=== PATIENT | female | born 1935 | race Caucasian/White ===

== ENCOUNTER 2017-07-09 08:42 | Inpatient (IN) | payer MEDICARE, BC ==
[2017-07-09 09:04] LABS: ADD MAN DIFF? NO
[2017-07-09 09:06] LABS: BASOPHILS % 0.1 % (0.0-2.0); EOSINOPHILS # 0.6 10^3/ul (0.0-0.5); EOSINOPHILS % 2.7 % (0.0-7.0); HEMATOCRIT 36.2 % (37.0-47.0); HEMOGLOBIN 12.1 g/dl (12.0-16.0); LYMPHOCYTES # 2.2 10^3/ul (0.8-2.9); LYMPHOCYTES % 10.9 % (15.0-51.0); MEAN CORPUSCULAR HEMOGLOBIN 31.9 pg (29.0-33.0); MEAN CORPUSCULAR HGB CONC 33.4 g/dl (32.0-37.0); MEAN CORPUSCULAR VOLUME 95.5 fl (82.0-101.0); MEAN PLATELET VOLUME 10.7 fl (7.4-10.4); MONOCYTE # 1.2 10^3/ul (0.3-0.9); NEUTROPHIL # 16.4 10^3/ul (1.6-7.5); NEUTROPHILS % 79.7 % (39.0-77.0); PLATELET COUNT 196 10^3/UL (140-415); RED BLOOD COUNT 3.79 10^6/ul (4.20-5.40); RED CELL DISTRIBUTION WIDTH 12.9 % (11.5-14.5)
[2017-07-09 09:06] LABS: WHITE BLOOD COUNT 20.6 10^3/ul (4.8-10.8)
[2017-07-09] MEDS: morphine 4 MG/ML VIAL IV (09:20)
[2017-07-09] MEDS: ONDANSETRON 4 MG INJ IV (09:22)
[2017-07-09] MEDS: SOD CHLORIDE 0.9% 1,000 ML IV ×2 (09:22→12:52)
[2017-07-09 09:29] LABS: ALANINE AMINOTRANSFERASE 57 IU/L (13-69); ALBUMIN 4.7 g/dl (3.3-4.9); ALBUMIN/GLOBULIN RATIO 1.51; ALKALINE PHOSPHATASE 73 IU/L (42-121); ANION GAP 23 (8-16); ASPARTATE AMINO TRANSFERASE 60 IU/L (15-46); BILIRUBIN,INDIRECT 0.3 mg/dl (0-1.1); BILIRUBIN,TOTAL 0.3 mg/dl (0.2-1.3); BLOOD UREA NITROGEN 32 mg/dl (7-20); CALCIUM 10.9 mg/dl (8.4-10.2); CARBON DIOXIDE 18 mmol/L (21-31); CHLORIDE 106 mmol/L (97-110); CREATININE 1.05 mg/dl (0.44-1.00); GLUCOSE 328 mg/dl (70-220); LIPASE 208 U/L (23-300); POTASSIUM 5.4 mmol/L (3.5-5.1); SODIUM 142 mmol/L (135-144); TOTAL PROTEIN 7.8 g/dl (6.1-8.1)
[2017-07-09 09:37] LABS: PARTIAL THROMBOPLASTIN TIME 27.7 Sec (25.0-35.0)
[2017-07-09 09:41] LABS: INR 0.95; PROTIME 12.8 Sec (11.9-14.9)
[2017-07-09 09:42] LABS: TROPONIN-I < 0.012 ng/ml (0.000-0.120)
[2017-07-09] MEDS: SOD CHLORIDE 0.9% 2,000 ML IV (10:19)
[2017-07-09] MEDS: INSULIN LISPRO 100 UNIT/ML VIAL SC (10:24)
[2017-07-09] MEDS: LACTATED RINGER'S 1,000 ML IV (10:30)
[2017-07-09] MEDS ORDERED: ACETAMINOPHEN 325 MG TAB PO ×2 (11:30→12:00)
[2017-07-09] MEDS ORDERED: ONDANSETRON 4 MG INJ IV ×2 (11:30→12:00)
[2017-07-09] MEDS ORDERED: NACL 0.9% 3 ML SYG IV (12:00)
[2017-07-09] MEDS ORDERED: NON-FORMULARY/PATIENT OWN MED (Rosuvastatin Calcium* (Crestor*) 5 MG) PO (12:00)
[2017-07-09] MEDS ORDERED: DOCUSATE SODIUM 100 MG CAP PO (12:00)
[2017-07-09] MEDS ORDERED: MAGNESIUM HYDROXIDE 30ML CUP PO (12:00)
[2017-07-09 12:54] LABS: HEMOGLOBIN A1C 7.9 % (0-5.9)
[2017-07-09 14:18] LABS: CARBON DIOXIDE 18 mmol/L (21-31); CHLORIDE 114 mmol/L (97-110); POTASSIUM 4.9 mmol/L (3.5-5.1); SODIUM 145 mmol/L (135-144)
[2017-07-09 14:19] LABS: ANION GAP 18 (8-16); BLOOD UREA NITROGEN 30 mg/dl (7-20); CREATININE 0.92 mg/dl (0.44-1.00); GLUCOSE 113 mg/dl (70-220)
[2017-07-09 14:20] LABS: LACTIC ACID 3.4 mmol/L (0.5-2.0)
[2017-07-09] MEDS: CHOLECALCIFEROL 1,000 UNIT TAB PO (14:31)
[2017-07-09] MEDS: FOLIC ACID 1 MG TAB PO (14:31)
[2017-07-09] MEDS: MULTIVITAMINS THERAPEUTIC TAB PO (14:31)
[2017-07-09] MEDS: METOPROLOL (XL) 25 MG TAB PO (14:32)
[2017-07-09] MEDS: AMLODIPINE 2.5 MG TAB PO (14:32)
[2017-07-09] MEDS: PANTOPRAZOLE (EC) 40 MG TAB PO (14:32)
[2017-07-09] MEDS: CYANOCOBALAMIN 100 MCG TAB PO (14:38)
[2017-07-09] MEDS: ENOXAPARIN 40 MG/0.4 ML SYG SC (14:38)
[2017-07-09 15:26] LABS: LACTIC ACID 2.7 mmol/L (0.5-2.0)
[2017-07-09 15:35] LABS: ADD UMIC YES; UR ASCORBIC ACID NEGATIVE (NEGATIVE); UR BACTERIA MODERATE /HPF (NONE SEEN); UR BILIRUBIN (Dip) NEGATIVE (NEGATIVE); UR BLOOD (Dip) NEGATIVE (NEGATIVE); UR CLARITY SLIGHTLY CLOUDY (CLEAR); UR COLOR YELLOW (YELLOW); UR GLUCOSE (Dip) NEGATIVE (NEGATIVE); UR KETONES (Dip) TRACE mg/dL (NEGATIVE); UR LEUKOCYTE ESTERASE (Dip) TRACE Leu/ul (NEGATIVE); UR MUCUS FEW /HPF (NONE SEEN); UR NITRITE (Dip) POSITIVE (NEGATIVE); UR RBC 0 /HPF (0-5); UR SPECIFIC GRAVITY (Dip) 1.013 (1.003-1.030); UR TOTAL PROTEIN (Dip) NEGATIVE (NEGATIVE); UR UROBILINOGEN (Dip) NEGATIVE (NEGATIVE); UR WBC 5 /HPF (0-5)
[2017-07-09] MEDS: LEVOFLOXACIN 500MG/D5W (PMX) 100 ML IVPB (17:20)
[2017-07-09] MEDS: INSULIN ASPART [NOVOLOG] 3 ML PEN SC ×2 (17:23→20:56)
[2017-07-09 17:55] LABS: LACTIC ACID 1.2 mmol/L (0.5-2.0)
[2017-07-09] MEDS: GABAPENTIN 100 MG CAP PO (20:56)
[2017-07-09] MEDS ORDERED: ROSUVASTATIN 10 MG TAB PO (21:00)
[2017-07-09] MEDS: ROSUVASTATIN 10 MG TAB PO (21:46)
[2017-07-10] MEDS: PANTOPRAZOLE (EC) 40 MG TAB PO (05:11)
[2017-07-10 05:26] LABS: ADD MAN DIFF? NO
[2017-07-10 05:31] LABS: WHITE BLOOD COUNT 13.4 10^3/ul (4.8-10.8)
[2017-07-10 05:31] LABS: BASOPHILS % 0.1 % (0.0-2.0); EOSINOPHILS # 0.5 10^3/ul (0.0-0.5); EOSINOPHILS % 3.8 % (0.0-7.0); HEMATOCRIT 25.8 % (37.0-47.0); HEMOGLOBIN 8.5 g/dl (12.0-16.0); LYMPHOCYTES # 3.6 10^3/ul (0.8-2.9); LYMPHOCYTES % 27.2 % (15.0-51.0); MEAN CORPUSCULAR HEMOGLOBIN 32.2 pg (29.0-33.0); MEAN CORPUSCULAR HGB CONC 32.9 g/dl (32.0-37.0); MEAN CORPUSCULAR VOLUME 97.7 fl (82.0-101.0); MEAN PLATELET VOLUME 10.8 fl (7.4-10.4); MONOCYTE # 0.8 10^3/ul (0.3-0.9); MONOCYTES % 6.1 % (0.0-11.0); NEUTROPHIL # 8.3 10^3/ul (1.6-7.5); NEUTROPHILS % 62.4 % (39.0-77.0); PLATELET COUNT 147 10^3/UL (140-415); RED BLOOD COUNT 2.64 10^6/ul (4.20-5.40)
[2017-07-10 05:53] LABS: ANION GAP 15 (8-16); BLOOD UREA NITROGEN 29 mg/dl (7-20); CALCIUM 8.5 mg/dl (8.4-10.2); CARBON DIOXIDE 19 mmol/L (21-31); CHLORIDE 111 mmol/L (97-110); CREATININE 1.04 mg/dl (0.44-1.00); GLUCOSE 86 mg/dl (70-220); MAGNESIUM 1.2 mg/dl (1.7-2.5); PHOSPHORUS 3.2 mg/dl (2.5-4.9); POTASSIUM 4.4 mmol/L (3.5-5.1); SODIUM 141 mmol/L (135-144)
[2017-07-10] MEDS: INSULIN ASPART [NOVOLOG] 3 ML PEN SC ×4 (08:00→21:46)
[2017-07-10] MEDS: FOLIC ACID 1 MG TAB PO (09:00)
[2017-07-10] MEDS: MULTIVITAMINS THERAPEUTIC TAB PO (09:01)
[2017-07-10] MEDS: AMLODIPINE 2.5 MG TAB PO (09:01)
[2017-07-10] MEDS: CYANOCOBALAMIN 100 MCG TAB PO (09:01)
[2017-07-10] MEDS: CHOLECALCIFEROL 1,000 UNIT TAB PO (09:01)
[2017-07-10] MEDS: METOPROLOL (XL) 25 MG TAB PO (09:01)
[2017-07-10] MEDS: SOD CHLORIDE 0.9% 1,000 ML IV (09:09)
[2017-07-10] MEDS: LEVOFLOXACIN 250MG/D5W (PMX) 50 ML IVPB (16:08)
[2017-07-10] MEDS: MAGNESIUM OXIDE 400 MG TAB PO (17:17)
[2017-07-10] MEDS: MAGNESIUM SULFATE 4 GM/100 ML 100 ML IVPB (17:27)
[2017-07-10] MEDS: GABAPENTIN 100 MG CAP PO (21:47)
[2017-07-11] MEDS: PANTOPRAZOLE (EC) 40 MG TAB PO (05:39)
[2017-07-11] MEDS: CHOLECALCIFEROL 1,000 UNIT TAB PO (08:17)
[2017-07-11] MEDS: MULTIVITAMINS THERAPEUTIC TAB PO (08:17)
[2017-07-11] MEDS: FOLIC ACID 1 MG TAB PO (08:17)
[2017-07-11] MEDS: INSULIN ASPART [NOVOLOG] 3 ML PEN SC ×2 (08:17→12:25)
[2017-07-11] MEDS: AMLODIPINE 2.5 MG TAB PO (08:18)
[2017-07-11] MEDS: METOPROLOL (XL) 25 MG TAB PO (08:18)
[2017-07-11] MEDS: CYANOCOBALAMIN 100 MCG TAB PO (08:20)
[2017-07-11 12:22] LABS: ADD MAN DIFF? NO
[2017-07-11 12:27] LABS: BASOPHILS % 0.1 % (0.0-2.0); EOSINOPHILS # 0.6 10^3/ul (0.0-0.5); EOSINOPHILS % 5.8 % (0.0-7.0); HEMATOCRIT 28.3 % (37.0-47.0); HEMOGLOBIN 9.5 g/dl (12.0-16.0); LYMPHOCYTES # 2.9 10^3/ul (0.8-2.9); LYMPHOCYTES % 29.3 % (15.0-51.0); MEAN CORPUSCULAR HEMOGLOBIN 31.8 pg (29.0-33.0); MEAN CORPUSCULAR HGB CONC 33.6 g/dl (32.0-37.0); MEAN CORPUSCULAR VOLUME 94.6 fl (82.0-101.0); MEAN PLATELET VOLUME 10.2 fl (7.4-10.4); MONOCYTE # 0.7 10^3/ul (0.3-0.9); MONOCYTES % 6.9 % (0.0-11.0); NEUTROPHIL # 5.8 10^3/ul (1.6-7.5); NEUTROPHILS % 57.3 % (39.0-77.0); PLATELET COUNT 149 10^3/UL (140-415); RED BLOOD COUNT 2.99 10^6/ul (4.20-5.40); RED CELL DISTRIBUTION WIDTH 12.8 % (11.5-14.5)
[2017-07-11 12:47] LABS: ALBUMIN 4.1 g/dl (3.3-4.9); ANION GAP 19 (8-16); BLOOD UREA NITROGEN 19 mg/dl (7-20); CALCIUM 8.9 mg/dl (8.4-10.2); CARBON DIOXIDE 22 mmol/L (21-31); CHLORIDE 106 mmol/L (97-110); CREATININE 0.94 mg/dl (0.44-1.00); GLUCOSE 254 mg/dl (70-220); PHOSPHORUS 2.9 mg/dl (2.5-4.9); POTASSIUM 4.8 mmol/L (3.5-5.1); SODIUM 142 mmol/L (135-144)
[2017-07-11] MEDS: LEVOFLOXACIN 250 MG TAB PO (15:57)
== END 2017-07-11 17:19 | disposition home or self-care (01) | DRG 872 ==
LOC: E/R 08:42 → PP2 11:28
PROVIDERS: Internal Medicine
DX: A41.9 Sepsis, unspecified organism (principal); N39.0 Urinary tract infection, site not specified; N17.9 Acute kidney failure, unspecified; E11.65 Type 2 diabetes mellitus with hyperglycemia; K52.9 Noninfective gastroenteritis and colitis, unspecified
CPT/HCPCS: 36415; 74176; 76705; 80048; 80053; 80069; 81001; 82962; 83036; 83605; 83690; 83735; 84100; 84484; 85025; 85610; 85730; 86850; 86900; 86901; 87040; 87045; 87086; 87177; 93005; 96361; 96372; 96374; 96375; 99285-25

== ENCOUNTER 2017-08-30 17:22 | Inpatient (IN) | payer MEDICARE, BC ==
[2017-08-30 17:37] LABS: ADD MAN DIFF? NO
[2017-08-30 17:44] LABS: WHITE BLOOD COUNT 18.7 10^3/ul (4.8-10.8)
[2017-08-30 17:44] LABS: BASOPHILS % 0.2 % (0.0-2.0); EOSINOPHILS # 0.4 10^3/ul (0.0-0.5); EOSINOPHILS % 2.1 % (0.0-7.0); HEMATOCRIT 35.6 % (37.0-47.0); HEMOGLOBIN 12.1 g/dl (12.0-16.0); LYMPHOCYTES # 2.2 10^3/ul (0.8-2.9); LYMPHOCYTES % 11.9 % (15.0-51.0); MEAN CORPUSCULAR HEMOGLOBIN 32.8 pg (29.0-33.0); MEAN CORPUSCULAR VOLUME 96.5 fl (82.0-101.0); MEAN PLATELET VOLUME 10.9 fl (7.4-10.4); MONOCYTES % 5.5 % (0.0-11.0); NEUTROPHIL # 14.9 10^3/ul (1.6-7.5); NEUTROPHILS % 79.7 % (39.0-77.0); PLATELET COUNT 185 10^3/UL (140-415); RED BLOOD COUNT 3.69 10^6/ul (4.20-5.40); RED CELL DISTRIBUTION WIDTH 12.7 % (11.5-14.5)
[2017-08-30 18:03] LABS: ALANINE AMINOTRANSFERASE 49 IU/L (13-69); ALBUMIN 5.1 g/dl (3.3-4.9); ALBUMIN/GLOBULIN RATIO 1.59; ALKALINE PHOSPHATASE 81 IU/L (42-121); ANION GAP 24 (8-16); ASPARTATE AMINO TRANSFERASE 66 IU/L (15-46); BILIRUBIN,INDIRECT 0.3 mg/dl (0-1.1); BILIRUBIN,TOTAL 0.3 mg/dl (0.2-1.3); BLOOD UREA NITROGEN 35 mg/dl (7-20); CALCIUM 10.4 mg/dl (8.4-10.2); CARBON DIOXIDE 14 mmol/L (21-31); CHLORIDE 108 mmol/L (97-110); GLUCOSE 240 mg/dl (70-220); LIPASE 297 U/L (23-300); SODIUM 141 mmol/L (135-144); TOTAL PROTEIN 8.3 g/dl (6.1-8.1)
[2017-08-30 18:14] LABS: TROPONIN-I < 0.010 ng/ml (0.000-0.120)
[2017-08-30] MEDS: SOD CHLORIDE 0.9% 1,000 ML IV (18:18)
[2017-08-30] MEDS: ONDANSETRON 4 MG INJ IV (18:18)
[2017-08-30] MEDS ORDERED: SOD CHLORIDE 0.9% 1,000 ML IV (19:10)
[2017-08-30] MEDS ORDERED: DEXTROSE 50% 50 ML SYRINGE IV ×4 (19:30→22:30)
[2017-08-30 20:40] LABS: ADD UMIC NO; UR ASCORBIC ACID NEGATIVE (NEGATIVE); UR BILIRUBIN (Dip) NEGATIVE (NEGATIVE); UR BLOOD (Dip) NEGATIVE (NEGATIVE); UR CLARITY CLEAR (CLEAR); UR COLOR YELLOW (YELLOW); UR GLUCOSE (Dip) NEGATIVE (NEGATIVE); UR KETONES (Dip) 1+ mg/dL (NEGATIVE); UR LEUKOCYTE ESTERASE (Dip) NEGATIVE Leu/ul (NEGATIVE); UR NITRITE (Dip) NEGATIVE (NEGATIVE); UR SPECIFIC GRAVITY (Dip) 1.015 (1.003-1.030); UR TOTAL PROTEIN (Dip) NEGATIVE (NEGATIVE); UR UROBILINOGEN (Dip) NEGATIVE (NEGATIVE)
[2017-08-30 21:14] LABS: MODE ROOM AIR; MetHgb Venous 0.4 %; Sample Type Blood venous; Site VENOUS LINE; Venous COHb 0.3 %; Venous Fraction OxyHgb 56.1 %; Venous Oxygen Sat 56.5 mmHG (55.0-75.0); Venous Total Hemglobin 10.9 g/dl
[2017-08-30] MEDS: INSULIN REGULAR, HUMAN 100 UNIT in SOD CHLORIDE 0.9% 100 ML IV (21:17)
[2017-08-30] MEDS: SODIUM CHLORIDE 23.4% 77 MEQ, POTASSIUM CHLORIDE 30 MEQ in DEXTROSE 10% 1,000 ML IV (21:29)
[2017-08-30] MEDS: POTASSIUM CHLORIDE 30 MEQ in SOD CHLORIDE 0.9% 1,000 ML IV (21:29)
[2017-08-30 21:55] LABS: ANION GAP 18 (8-16); BLOOD UREA NITROGEN 35 mg/dl (7-20); CALCIUM 9.1 mg/dl (8.4-10.2); CARBON DIOXIDE 17 mmol/L (21-31); CHLORIDE 110 mmol/L (97-110); CREATININE 1.14 mg/dl (0.44-1.00); GLUCOSE 229 mg/dl (70-220); PHOSPHORUS 2.3 mg/dl (2.5-4.9); POTASSIUM 5.1 mmol/L (3.5-5.1); SODIUM 140 mmol/L (135-144)
[2017-08-30 22:00] LABS: MAGNESIUM 0.9 mg/dl (1.7-2.5)
[2017-08-30] MEDS ORDERED: SODIUM CHLORIDE 23.4% 77 MEQ, POTASSIUM CHLORIDE 30 MEQ in DEXTROSE 10% 1,000 ML IV (22:14)
[2017-08-30] MEDS ORDERED: POTASSIUM CHLORIDE 40 MEQ in SOD CHLORIDE 0.9% 1,000 ML IV (22:14)
[2017-08-30] MEDS ORDERED: POTASSIUM CHLORIDE 30 MEQ in SOD CHLORIDE 0.9% 1,000 ML IV (22:14)
[2017-08-30] MEDS ORDERED: SODIUM CHLORIDE 23.4% 77 MEQ, POTASSIUM CHLORIDE 40 MEQ in DEXTROSE 10% 1,000 ML IV (22:14)
[2017-08-30] MEDS ORDERED: ALBUTEROL/IPRATROPIUM (NEB) 3 ML AMP NEB (22:30)
[2017-08-30] MEDS ORDERED: ACETAMINOPHEN 325 MG TAB PO (22:30)
[2017-08-30] MEDS ORDERED: ONDANSETRON 4 MG INJ IV (22:30)
[2017-08-30] MEDS ORDERED: NON-FORMULARY/PATIENT OWN MED (Rosuvastatin Calcium* (Crestor*) 5 MG) PO (22:30)
[2017-08-30] MEDS ORDERED: ACETAMINOPHEN 650MG/20.3ML CUP PO (22:30)
[2017-08-30] MEDS ORDERED: morphine 2 MG INJ IV (22:30)
[2017-08-30] MEDS: ACCU-CHEK XX ×2 (22:57→23:30)
[2017-08-30 23:09] LABS: MODE ROOM AIR; MetHgb Venous 0.4 %; Sample Type Blood venous; Site VENOUS LINE; Venous COHb 0.3 %; Venous Oxygen Sat 62.4 mmHG (55.0-75.0); Venous Total Hemglobin 10.3 g/dl
[2017-08-30 23:37] LABS: HEMOGLOBIN A1C 7.8 % (0-5.9)
[2017-08-30 23:47] LABS: ANION GAP 15 (8-16); BLOOD UREA NITROGEN 31 mg/dl (7-20); CARBON DIOXIDE 15 mmol/L (21-31); CHLORIDE 114 mmol/L (97-110); CREATININE 0.98 mg/dl (0.44-1.00); PHOSPHORUS 1.3 mg/dl (2.5-4.9); SODIUM 137 mmol/L (135-144)
[2017-08-30 23:55] LABS: POTASSIUM 7.1 mmol/L (3.5-5.1)
[2017-08-30 23:56] LABS: GLUCOSE 834 mg/dl (70-220)
[2017-08-31 00:29] LABS: ANION GAP 14 (8-16); BLOOD UREA NITROGEN 35 mg/dl (7-20); CALCIUM 8.7 mg/dl (8.4-10.2); CARBON DIOXIDE 18 mmol/L (21-31); CHLORIDE 115 mmol/L (97-110); CREATININE 1.09 mg/dl (0.44-1.00); GLUCOSE 246 mg/dl (70-220); POTASSIUM 5.2 mmol/L (3.5-5.1); SODIUM 142 mmol/L (135-144)
[2017-08-31] MEDS: ACCU-CHEK XX ×17 (00:30→16:35)
[2017-08-31 00:32] LABS: LACTIC ACID 5.4 mmol/L (0.5-2.0)
[2017-08-31] MEDS: MAGNESIUM SULFATE 4 GM/100 ML 100 ML IVPB (00:52)
[2017-08-31 02:56] LABS: LACTIC ACID 3.6 mmol/L (0.5-2.0)
[2017-08-31 03:01] LABS: ANION GAP 15 (8-16); BLOOD UREA NITROGEN 36 mg/dl (7-20); CALCIUM 8.5 mg/dl (8.4-10.2); CARBON DIOXIDE 18 mmol/L (21-31); CHLORIDE 114 mmol/L (97-110); GLUCOSE 253 mg/dl (70-220); MAGNESIUM 1.8 mg/dl (1.7-2.5); PHOSPHORUS 1.6 mg/dl (2.5-4.9); POTASSIUM 5.8 mmol/L (3.5-5.1); SODIUM 141 mmol/L (135-144)
[2017-08-31 03:13] LABS: MODE ROOM AIR; MetHgb Venous 0.5 %; Sample Type Blood venous; Site VENOUS LINE; Venous COHb 0.2 %; Venous Fraction OxyHgb 64.6 %; Venous Oxygen Sat 65.1 mmHG (55.0-75.0); Venous Total Hemglobin 9.4 g/dl
[2017-08-31] MEDS: SODIUM CHLORIDE 23.4% 77 MEQ in DEXTROSE 10% 1,000 ML IV ×2 (04:21→12:35)
[2017-08-31] MEDS: SOD CHLORIDE 0.9% 1,000 ML IV (04:22)
[2017-08-31] MEDS: PANTOPRAZOLE 40 MG INJ IV (06:08)
[2017-08-31 07:07] LABS: LACTIC ACID 2.7 mmol/L (0.5-2.0)
[2017-08-31 07:13] LABS: ANION GAP 13 (8-16); BLOOD UREA NITROGEN 32 mg/dl (7-20); CALCIUM 8.5 mg/dl (8.4-10.2); CARBON DIOXIDE 18 mmol/L (21-31); CHLORIDE 114 mmol/L (97-110); GLUCOSE 255 mg/dl (70-220); MAGNESIUM 2.9 mg/dl (1.7-2.5); POTASSIUM 5.5 mmol/L (3.5-5.1); SODIUM 139 mmol/L (135-144)
[2017-08-31 07:47] LABS: AADO2 Venous 76.4 mmHg; MODE ROOM AIR; MetHgb Venous 0.6 %; Site VENOUS LINE; Venous COHb 0.1 %; Venous Fraction OxyHgb 56.7 %; Venous Oxygen Sat 57.1 mmHG (55.0-75.0); Venous Total Hemglobin 9.6 g/dl
[2017-08-31 07:48] LABS: Sample Type Blood venous
[2017-08-31] MEDS: CHOLECALCIFEROL 1,000 UNIT TAB PO (08:24)
[2017-08-31] MEDS: CYANOCOBALAMIN 100 MCG TAB PO (08:24)
[2017-08-31] MEDS: FOLIC ACID 1 MG TAB PO (08:24)
[2017-08-31] MEDS: AMLODIPINE 2.5 MG TAB PO (09:00)
[2017-08-31] MEDS: LISINOPRIL 20 MG TAB PO (10:42)
[2017-08-31] MEDS: METOPROLOL (XL) 25 MG TAB PO (10:43)
[2017-08-31 11:03] LABS: LACTIC ACID 2.5 mmol/L (0.5-2.0)
[2017-08-31] MEDS: INSULIN ASPART [NOVOLOG] 3 ML PEN SC ×7 (11:30→20:46)
[2017-08-31] MEDS ORDERED: GLUCOSE GEL 15 GRAM TUBE BUCCAL (12:00)
[2017-08-31] MEDS ORDERED: GLUCOSE GEL 15 GRAM TUBE PO ×2 (12:00)
[2017-08-31] MEDS ORDERED: GLUCAGON 1 MG INJ IM (12:00)
[2017-08-31] MEDS ORDERED: DEXTROSE 50% 50 ML SYRINGE IV ×2 (12:00)
[2017-08-31 12:32] LABS: ADD UMIC YES; UR AMORPHOUS CRYSTAL MANY /HPF (NONE SEEN); UR ASCORBIC ACID NEGATIVE (NEGATIVE); UR BACTERIA MANY /HPF (NONE SEEN); UR BILIRUBIN (Dip) NEGATIVE (NEGATIVE); UR BLOOD (Dip) 3+ mg/dL (NEGATIVE); UR CLARITY CLOUDY (CLEAR); UR COLOR YELLOW (YELLOW); UR GLUCOSE (Dip) NEGATIVE (NEGATIVE); UR KETONES (Dip) NEGATIVE (NEGATIVE); UR LEUKOCYTE ESTERASE (Dip) 3+ Leu/ul (NEGATIVE); UR NITRITE (Dip) NEGATIVE (NEGATIVE); UR RBC 14 /HPF (0-5); UR SPECIFIC GRAVITY (Dip) 1.006 (1.003-1.030); UR TOTAL PROTEIN (Dip) NEGATIVE (NEGATIVE); UR UROBILINOGEN (Dip) NEGATIVE (NEGATIVE); UR WBC 18 /HPF (0-5)
[2017-08-31] MEDS: INSULIN GLARGINE [LANTus] (100 UNITS/ML) SYG SC (12:37)
[2017-08-31] MEDS: INSULIN REGULAR, HUMAN 100 UNIT in SOD CHLORIDE 0.9% 100 ML IV (14:30)
[2017-08-31 15:02] LABS: AADO2 Venous 85.2 mmHg; MODE ROOM AIR; MetHgb Venous 0.8 %; Sample Type Blood venous; Site VENOUS LINE; Venous COHb 0.3 %; Venous Fraction OxyHgb 32.8 %; Venous Oxygen Sat 33.2 mmHG (55.0-75.0); Venous Total Hemglobin 9.7 g/dl
[2017-08-31 16:05] LABS: ANION GAP 13 (8-16); BLOOD UREA NITROGEN 21 mg/dl (7-20); CARBON DIOXIDE 16 mmol/L (21-31); CHLORIDE 111 mmol/L (97-110); CREATININE 0.96 mg/dl (0.44-1.00); GLUCOSE 268 mg/dl (70-220); MAGNESIUM 2.1 mg/dl (1.7-2.5); PHOSPHORUS 2.2 mg/dl (2.5-4.9); POTASSIUM 4.4 mmol/L (3.5-5.1); SODIUM 136 mmol/L (135-144)
[2017-08-31] MEDS: GABAPENTIN 100 MG CAP PO ×2 (20:46→20:47)
[2017-09-01] MEDS ORDERED: ACCU-CHEK XX (02:00)
[2017-09-01] MEDS: PANTOPRAZOLE 40 MG INJ IV (05:31)
[2017-09-01] MEDS ORDERED: INSULIN GLARGINE [LANTus] (100 UNITS/ML) SYG SC (08:00)
[2017-09-01] MEDS: INSULIN ASPART [NOVOLOG] 3 ML PEN SC ×4 (08:00→12:45)
[2017-09-01] MEDS: CHOLECALCIFEROL 1,000 UNIT TAB PO (08:29)
[2017-09-01] MEDS: LISINOPRIL 20 MG TAB PO (08:29)
[2017-09-01] MEDS: AMLODIPINE 2.5 MG TAB PO (08:30)
[2017-09-01] MEDS: FOLIC ACID 1 MG TAB PO (08:30)
[2017-09-01] MEDS: METOPROLOL (XL) 25 MG TAB PO (08:30)
[2017-09-01] MEDS: INSULIN GLARGINE [LANTus] (100 UNITS/ML) SYG SC (08:31)
[2017-09-01] MEDS: CYANOCOBALAMIN 100 MCG TAB PO (09:28)
[2017-09-02] MEDS ORDERED: INSULIN GLARGINE [LANTus] (100 UNITS/ML) SYG SC (08:00)
== END 2017-09-01 18:00 | disposition home or self-care (01) | DRG 638 ==
LOC: PP2 09-01 00:11 → E/R 17:22 → ICU 22:21
DX: E11.10 Type 2 diabetes mellitus with ketoacidosis without coma (principal); E87.2 Acidosis; N17.9 Acute kidney failure, unspecified; K44.9 Diaphragmatic hernia without obstruction or gangrene; I10 Essential (primary) hypertension
CPT/HCPCS: 36415; 74176; 80048; 80053; 81001; 81003; 82803; 82962; 83036; 83605; 83690; 83735; 84100; 84484; 85025; 87081; 93005; 96374; 96375; 99285-25

== ENCOUNTER 2017-10-07 12:16 | Inpatient (IN) | payer MEDICARE, BC ==
[2017-10-07 13:33] LABS: ADD MAN DIFF? NO
[2017-10-07 13:39] LABS: ABNORMAL IP MESSAGE 1; BASOPHILS % 0.2 % (0.0-2.0); EOSINOPHILS # 0.5 10^3/ul (0.0-0.5); EOSINOPHILS % 2.5 % (0.0-7.0); HEMATOCRIT 37.8 % (37.0-47.0); HEMOGLOBIN 12.4 g/dl (12.0-16.0); LYMPHOCYTES # 1.1 10^3/ul (0.8-2.9); LYMPHOCYTES % 5.3 % (15.0-51.0); MEAN CORPUSCULAR HGB CONC 32.8 g/dl (32.0-37.0); MEAN CORPUSCULAR VOLUME 97.7 fl (82.0-101.0); MEAN PLATELET VOLUME 10.7 fl (7.4-10.4); MONOCYTE # 1.7 10^3/ul (0.3-0.9); MONOCYTES % 8.2 % (0.0-11.0); NEUTROPHILS % 83.3 % (39.0-77.0); PLATELET COUNT 203 10^3/UL (140-415); RED BLOOD COUNT 3.87 10^6/ul (4.20-5.40); RED CELL DISTRIBUTION WIDTH 12.8 % (11.5-14.5)
[2017-10-07 13:39] LABS: WHITE BLOOD COUNT 20.4 10^3/ul (4.8-10.8)
[2017-10-07 13:47] LABS: POSITIVE DIFF @See below
[2017-10-07] MEDS: ONDANSETRON 4 MG INJ IV (13:51)
[2017-10-07] MEDS: SOD CHLORIDE 0.9% 1,000 ML IV ×2 (13:51→16:09)
[2017-10-07] MEDS: LACTATED RINGER'S 1,000 ML IV (13:51)
[2017-10-07 13:59] LABS: ALANINE AMINOTRANSFERASE 39 IU/L (13-69); ALBUMIN 4.8 g/dl (3.3-4.9); ALBUMIN/GLOBULIN RATIO 1.41; ALKALINE PHOSPHATASE 74 IU/L (42-121); ANION GAP 27 (8-16); ASPARTATE AMINO TRANSFERASE 44 IU/L (15-46); BILIRUBIN,INDIRECT 0.1 mg/dl (0-1.1); BILIRUBIN,TOTAL 0.1 mg/dl (0.2-1.3); BLOOD UREA NITROGEN 33 mg/dl (7-20); CALCIUM 10.2 mg/dl (8.4-10.2); CARBON DIOXIDE 17 mmol/L (21-31); CHLORIDE 108 mmol/L (97-110); CREATININE 1.28 mg/dl (0.44-1.00); GLUCOSE 223 mg/dl (70-220); INR 0.93; LIPASE 228 U/L (23-300); PROTIME 12.6 Sec (11.9-14.9); SODIUM 145 mmol/L (135-144); TOTAL PROTEIN 8.2 g/dl (6.1-8.1)
[2017-10-07 14:05] LABS: POTASSIUM 6.6 mmol/L (3.5-5.1)
[2017-10-07 14:10] LABS: TROPONIN-I < 0.012 ng/ml (0.000-0.120)
[2017-10-07] MEDS ORDERED: DEXTROSE 50% 50 ML SYRINGE IV (14:30)
[2017-10-07] MEDS: ALBUTEROL 0.083% (NEB) 2.5 MG/3 ML AMP HHN (14:36)
[2017-10-07] MEDS: CA CHLORIDE 10% 10 ML SYRINGE IV (14:50)
[2017-10-07] MEDS: DEXTROSE 50% 50 ML SYRINGE IV (14:50)
[2017-10-07] MEDS: INSULIN REGULAR, HUMAN 100 UNIT/1 ML 3ML VIAL IVP (14:52)
[2017-10-07 15:09] LABS: MODE ROOM AIR; MetHgb Venous 0.8 %; Sample Type Blood venous; Site VENOUS LINE; Venous COHb 0.1 %; Venous Fraction OxyHgb 55.9 %; Venous Oxygen Sat 56.4 mmHG (55.0-75.0)
[2017-10-07] MEDS: CEFTRIAXONE 1 GM/50 ML (PMX) 50 ML IVPB (15:37)
[2017-10-07 16:07] LABS: ADD UMIC NO; UR ASCORBIC ACID NEGATIVE (NEGATIVE); UR BILIRUBIN (Dip) NEGATIVE (NEGATIVE); UR BLOOD (Dip) NEGATIVE (NEGATIVE); UR CLARITY CLEAR (CLEAR); UR COLOR YELLOW (YELLOW); UR GLUCOSE (Dip) 2+ mg/dL (NEGATIVE); UR KETONES (Dip) TRACE mg/dL (NEGATIVE); UR LEUKOCYTE ESTERASE (Dip) NEGATIVE Leu/ul (NEGATIVE); UR NITRITE (Dip) NEGATIVE (NEGATIVE); UR SPECIFIC GRAVITY (Dip) 1.013 (1.003-1.030); UR TOTAL PROTEIN (Dip) NEGATIVE (NEGATIVE); UR UROBILINOGEN (Dip) NEGATIVE (NEGATIVE)
[2017-10-07] MEDS ORDERED: HYDROCODONE/APAP (5/325) TAB PO (17:30)
[2017-10-07] MEDS ORDERED: NACL 0.9% 3 ML SYG IV (17:30)
[2017-10-07] MEDS ORDERED: MAGNESIUM HYDROXIDE 30ML CUP PO (17:30)
[2017-10-07] MEDS ORDERED: ZOLPIDEM 5 MG TAB PO (17:30)
[2017-10-07] MEDS ORDERED: ONDANSETRON 4 MG INJ IV (17:30)
[2017-10-07] MEDS ORDERED: SODIUM BICARBONATE (IV ADD) 100 MEQ in SOD CHLORIDE 0.9% 1,000 ML IV (17:30)
[2017-10-07] MEDS ORDERED: morphine 2 MG INJ IV (17:30)
[2017-10-07] MEDS ORDERED: DOCUSATE SODIUM 100 MG CAP PO (17:30)
[2017-10-07] MEDS: INSULIN ASPART [NOVOLOG] 3 ML PEN SC ×3 (18:00→21:56)
[2017-10-07] MEDS: ACETAMINOPHEN 325 MG TAB PO (18:45)
[2017-10-07 20:06] LABS: ANION GAP 14 (8-16); BLOOD UREA NITROGEN 25 mg/dl (7-20); CALCIUM 9.5 mg/dl (8.4-10.2); CARBON DIOXIDE 19 mmol/L (21-31); CHLORIDE 115 mmol/L (97-110); GLUCOSE 191 mg/dl (70-220); SODIUM 143 mmol/L (135-144)
[2017-10-07] MEDS ORDERED: NON-FORMULARY/PATIENT OWN MED (Carvedilol* 3.125 MG) PO (21:00)
[2017-10-07] MEDS: SODIUM BICARBONATE (IV ADD) 100 MEQ in SOD CHLORIDE 0.9% 900 ML IV (21:35)
[2017-10-07] MEDS: INSULIN GLARGINE [LANTus] (100 UNITS/ML) SYG SC (21:45)
[2017-10-08] MEDS: ACCU-CHEK XX (01:34)
[2017-10-08 04:15] LABS: CREATININE,URINE RANDOM 81.39 mg/dl (20-320); PROTEIN/CREAT RATIO 0.15 RATIO
[2017-10-08 06:09] LABS: ADD MAN DIFF? NO
[2017-10-08 06:19] LABS: WHITE BLOOD COUNT 14.9 10^3/ul (4.8-10.8)
[2017-10-08 06:19] LABS: BASOPHILS % 0.1 % (0.0-2.0); EOSINOPHILS # 0.3 10^3/ul (0.0-0.5); EOSINOPHILS % 1.7 % (0.0-7.0); HEMATOCRIT 24.4 % (37.0-47.0); LYMPHOCYTES # 2.9 10^3/ul (0.8-2.9); LYMPHOCYTES % 19.3 % (15.0-51.0); MEAN CORPUSCULAR HEMOGLOBIN 32.3 pg (29.0-33.0); MEAN CORPUSCULAR HGB CONC 32.8 g/dl (32.0-37.0); MEAN CORPUSCULAR VOLUME 98.4 fl (82.0-101.0); MEAN PLATELET VOLUME 10.7 fl (7.4-10.4); MONOCYTE # 1.1 10^3/ul (0.3-0.9); MONOCYTES % 7.3 % (0.0-11.0); NEUTROPHIL # 10.6 10^3/ul (1.6-7.5); PLATELET COUNT 126 10^3/UL (140-415); RED BLOOD COUNT 2.48 10^6/ul (4.20-5.40); RED CELL DISTRIBUTION WIDTH 13.2 % (11.5-14.5)
[2017-10-08 06:47] LABS: HEMOGLOBIN A1C 6.8 % (0-5.9)
[2017-10-08 07:19] LABS: ANION GAP 14 (8-16); BLOOD UREA NITROGEN 24 mg/dl (7-20); CALCIUM 8.9 mg/dl (8.4-10.2); CARBON DIOXIDE 21 mmol/L (21-31); CHLORIDE 112 mmol/L (97-110); CREATININE 1.02 mg/dl (0.44-1.00); GLUCOSE 79 mg/dl (70-220); MAGNESIUM 1.1 mg/dl (1.7-2.5); PHOSPHORUS 3.3 mg/dl (2.5-4.9); POTASSIUM 4.2 mmol/L (3.5-5.1); SODIUM 143 mmol/L (135-144)
[2017-10-08] MEDS: INSULIN ASPART [NOVOLOG] 3 ML PEN SC ×4 (07:55→12:00)
[2017-10-08] MEDS ORDERED: VITAMIN D3 PO (09:00)
[2017-10-08] MEDS ORDERED: CALCIUM CARBONATE PO (09:00)
[2017-10-08] MEDS ORDERED: [UNRECOGNIZED DRUG - OTHER] PO (09:00)
[2017-10-08] MEDS ORDERED: LISINOPRIL 20 MG TAB PO (09:00)
[2017-10-08] MEDS: CALCIUM/VITAMIN D (500/200) TAB PO (09:02)
[2017-10-08] MEDS: FOLIC ACID 1 MG TAB PO (09:02)
[2017-10-08] MEDS: POLYETHYLENE GLYCOL 17 GM PACKET PO (09:02)
[2017-10-08] MEDS: SODIUM BICARBONATE (IV ADD) 100 MEQ in SOD CHLORIDE 0.9% 900 ML IV (09:03)
[2017-10-08] MEDS: SOD CHLORIDE 0.45% 1,000 ML IV (12:03)
[2017-10-08] MEDS: MAGNESIUM SULFATE 4 GM/100 ML 100 ML IVPB (12:03)
[2017-10-08] MEDS ORDERED: MAGNESIUM OXIDE 400 MG TAB PO (21:00)
== END 2017-10-08 17:53 | disposition home or self-care (01) | DRG 682 ==
LOC: E/R 12:16 → TEL 14:33
DX: N17.9 Acute kidney failure, unspecified (principal); E11.10 Type 2 diabetes mellitus with ketoacidosis without coma; E87.2 Acidosis; E87.5 Hyperkalemia; E86.0 Dehydration; E11.65 Type 2 diabetes mellitus with hyperglycemia; R11.2 Nausea with vomiting, unspecified; Z79.4 Long term (current) use of insulin
CPT/HCPCS: 36415; 71045; 74176; 80048; 80053; 81003; 82570; 82803; 82962; 83036; 83690; 83735; 84100; 84484; 85025; 85610; 87081; 87086; 93005; 94664; 96361; 96374; 99291-25